=== PATIENT | female | born 1970 | race Caucasian/White ===

== ENCOUNTER 2021-09-28 08:09 | Emergency (ER) | payer OTHER, SELFPAY ==
--- NOTE | 2021-09-28 08:12 | ED.URI ---
HPI - URI/Sore Throat General Chief Complaint: Upper Respiratory Infection Stated Complaint: Cough/Shortness of Breath Time Seen by Provider: 09/28/21 08:12 Source: patient Mode of arrival: ambulatory Limitations: no limitations History of Present Illness HPI Narrative: Ms. Oro is a 51-year-old female patient presenting to the clinic today with complaints of cough and shortness of breath times x 1 week. Cough is productive with white sputum. She reports no fever or chills. States her daughter was diagnosed with bronchitis this past week. She has done COVID testing at home and they were negative. She reports shortness of breath and cough is worse when laying flat. She is able to speak in full sentences and her oxygen saturations 99% in the clinic today. She denies any known exposure to anybody with COVID, flu, or strep MD elicited complaint: cough and other (Shortness of breath) Related Data Home Medications Medication Instructions Recorded Confirmed escitalopram oxalate 10 mg tablet 10 mg PO DAILY 09/28/21 09/28/21 propranolol 80 mg capsule,24 80 mg PO DAILY 09/28/21 09/28/21 hr,extended release Allergies Allergy/AdvReac Type Severity Reaction Status Date / Time Penicillins Allergy Intermediate Hives Verified 09/28/21 08:28 Review of Systems Review of Systems: Pertinent positives per HPI. Patient denies any fever, chills, rash, headache, visual changes, dizziness, chest pain, palpitations, nausea, vomiting, diarrhea, constipation, abdominal pain, or any urinary issues. PMFSH Comments At the time of my signature, I reviewed and agree with the nursing past medical, surgical, social, and family history. There is no relevant family history pertinent to the patient complaint. Exam Narrative: General: Well-developed, well nourished, in no apparent distress Head: Normocephalic, atraumatic Eyes: Pupils equally round and reactive to light bilaterally, EOM intact, sclera and conjunctive clear, no discharge, lids normal Ears: TMs intact and clear, ear canals clear, no drainage, grossly hearing normal. Nose: Nares patent, clear nasal discharge, moderate inflammation, no sinus tenderness. Mouth: Oral pharynx without lesions or masses, good dentition, MMM. Postnasal drip Neck: Supple, trachea midline, no enlargement of anterior or posterior cervical nodes, no thyroid masses or goiter palpable. Cardio: Regular rate and rhythm, s1 and s2 normal, no murmur appreciated. Resp: Clear to auscultation bilaterally, no rhonchi, rales, wheezing or rubs Course Course Emergency Course: Portions of this record may have been created with voice recognition software. Level of Care: Express Care Visit Vital Signs Vital signs: Vital Signs Temperature 37.0 C 09/28/21 08:18 Pulse Rate 98 09/28/21 08:18 Respiratory Rate 22 H 09/28/21 08:18 Blood Pressure 163/101 H 09/28/21 08:18 Pulse Oximetry 99 09/28/21 08:18 Oxygen Delivery Room Air 09/28/21 08:18 Temperature 37.0 C 09/28/21 08:18 Pulse Rate 98 09/28/21 08:18 Respiratory Rate 22 H 09/28/21 08:18 Blood Pressure 163/101 H 09/28/21 08:18 Pulse Oximetry 99 09/28/21 08:18 Oxygen Delivery Room Air 09/28/21 08:18 Vital signs reviewed MDM - URI/Sore Throat MDM Narrative Medical decision making narrative: At the time of visit patient is resting comfortably on the exam table. I suspect the patient has an upper respiratory infection with postnasal drip. I will give her a prescription for some prednisone, Tessalon Perles, and albuterol inhaler. Supportive measures were discussed with the patient she voiced understanding of discharge instructions and agrees to the treatment plan. Also discussed patient's higher blood pressure in the clinic today and she is to follow-up with her PCP for reevaluation. Differential Diagnosis Differential diagnosis: Likely upper respiratory infection, otitis media, sinusitis, viral infection, bronchitis, influ
[2021-09-28 08:18] VITALS: BP 163/101; PULSE 98; RESP 22; TEMP 37; O2SAT 99
== END 2021-09-28 08:52 | disposition home or self-care (01) ==
PROVIDERS: Emergency Provider Nurse Practitioner Family; PCP Physician Assistant
DX: J06.9 Acute upper respiratory infection, unspecified (principal); I10 Essential (primary) hypertension; F41.9 Anxiety disorder, unspecified; F32.A Depression, unspecified
CPT/HCPCS: 99213; G0463

== ENCOUNTER 2022-01-13 10:07 | Emergency (ER) | payer OTHER, SELFPAY ==
--- NOTE | 2022-01-13 10:08 | ED.URI ---
HPI - URI/Sore Throat General Chief Complaint: Upper Respiratory Infection Stated Complaint: deep cough and in chest Time Seen by Provider: 01/13/22 10:09 Source: patient and RN notes reviewed History of Present Illness HPI Narrative: patient is a 51-year-old female who presents to urgent care with complaints of cough and drainage. Patient is also having some shortness of breath. Patient states symptoms started approximately 1-2 weeks ago and she has not been seen by her primary care doctor. Patient denies any recent fevers, nausea, vomiting or chest pain. Patient states she has been using Coricidin and DayQuil. States that she quit taking her prescription medications including her propranolol for increased heart rate. No other acute complaints. No acute distress noted. Patient aware of the plan of care. Some parts of this dictation were generated by voice recognition software and may contain typographical and/or grammatical inaccuracies. Related Data Allergies Allergy/AdvReac Type Severity Reaction Status Date / Time Penicillins Allergy Intermediate Hives Verified 09/28/21 08:28 erythromycin base Allergy Unknown Verified 01/13/22 10:17 Review of Systems Review of Systems: CONSTITUTIONAL: Denies fever, chills, or sweats. EYES: Denies visual changes, redness, or discharge. ENT: reports rhinorrhea postnasal drainage CARDIOVASCULAR: Denies chest pain, palpitations, or edema. RESPIRATORY: Reports dry cough with intermittent dyspnea GASTROINTESTINAL: Denies abdominal pain, nausea, vomiting, or diarrhea. GENITOURINARY: Denies dysuria or hematuria. SKIN: Denies rash or itching. MUSCULOSKELETAL: Denies back pain, joint pain, or myalgia. NEUROLOGIC: Denies headache, numbness, or weakness. All other systems reviewed are negative, except as documented in HPI. PMFSH Comments At the time of my signature, I reviewed and agree with the nursing past medical, surgical, social, and family history. There is no relevant family history pertinent to the patient complaint. Exam Narrative: GENERAL: This is a well-nourished, well-developed patient, in no apparent distress. HEAD: normocephalic, atraumatic. EYES: PERRL. Sclera clear/white. Vision is grossly intact. EARS: External ears normal, auditory canals clear and without drainage, TMs normal without perforation. Hearing grossly intact. NOSE: External nose normal with no obvious nasal discharge, nares without redness, clear rhinorrhea. THROAT: Mucous membranes moist, posterior pharynx clear. Moderate postnasal drainage NECK: Neck supple, non-tender without lymphadenopathy, masses or thyromegaly. CARDIOVASCULAR: auscultated 98 beats per minute sinus rhythm RESPIRATORY: dry cough noted on exam.Clear to auscultation. Breath sounds equal bilaterally. No wheezes, rales, or rhonchi. GASTROINTESTINAL: Abdomen soft, non-tender, nondistended. Bowel sounds are active. No hepato-splenomegaly, or palpable masses. No guarding. SKIN: warm, intact with no suspicious lesions or rash, good texture and turgor. NEURO: awake, alert, and oriented to person, place and time. There were no obvious focal neurologic abnormalities. EXTREMITIES: No clubbing, cyanosis, or edema. Course Course Level of Care: Express Care Visit Vital Signs Vital signs: Vital Signs Temperature 97.3 F L 01/13/22 10:18 Pulse Rate 108 H 01/13/22 10:18 Respiratory Rate 16 01/13/22 10:18 Blood Pressure 167/122 H 01/13/22 10:18 Pulse Oximetry 99 01/13/22 10:18 Oxygen Delivery Room Air 01/13/22 10:18 Temperature 97.3 F L 01/13/22 10:18 Pulse Rate 108 H 01/13/22 10:18 Respiratory Rate 16 01/13/22 10:18 Blood Pressure 167/122 H 01/13/22 10:18 Pulse Oximetry 99 01/13/22 10:18 Oxygen Delivery Room Air 01/13/22 10:18 Reviewed- Patient is informed that they may have pre-hypertension or hypertension based on a blood pressure reading in the department. I recommend the patient call the primary care
[2022-01-13 10:18] VITALS: BP 167/122; PULSE 108; RESP 16; TEMP 36.3; O2SAT 99
[2022-01-13 10:33] VITALS: BP 150/108
== END 2022-01-13 10:34 | disposition home or self-care (01) ==
PROVIDERS: Emergency Provider Nurse Practitioner Family
DX: J06.9 Acute upper respiratory infection, unspecified (principal); I10 Essential (primary) hypertension
CPT/HCPCS: 99213; G0463

== ENCOUNTER 2022-05-31 14:23 | Emergency (ER) | payer OTHER, SELFPAY ==
[2022-05-31 14:32] VITALS: BP 154/104; PULSE 94; RESP 16; TEMP 36.2; O2SAT 98
--- NOTE | 2022-05-31 15:09 | ED.URI ---
HPI - URI/Sore Throat General Chief Complaint: Upper Respiratory Infection Stated Complaint: Cold Symptoms Time Seen by Provider: 05/31/22 14:44 Source: patient Mode of arrival: ambulatory Limitations: no limitations History of Present Illness HPI Narrative: Patient presents today complaining a 5 day history sweats, chills, congestion, sore throat, sinus pressure, fatigue, with subjective fever on day of onset of symptoms. She also reports left eye redness and green pus drainage since this morning. She has been taking Benadryl and Tylenol with some relief. Patient takes azathioprine for her ulcerative colitis. Smokes 0.25 packs per day. Denies shortness of breath. Related Data Home Medications Medication Instructions Recorded Confirmed azathioprine 50 mg tablet 50 mg PO DAILY 05/31/22 05/31/22 escitalopram oxalate 10 mg tablet 10 mg PO DAILY 05/31/22 05/31/22 propranolol 80 mg capsule,24 80 mg PO DAILY 05/31/22 05/31/22 hr,extended release Allergies Allergy/AdvReac Type Severity Reaction Status Date / Time Penicillins Allergy Intermediate Hives Verified 05/31/22 14:36 erythromycin base Allergy Unknown Verified 05/31/22 14:36 Review of Systems Review of Systems: CONSTITUTIONAL: Denies body aches.+ sweats, chills, fever, fatigue EYES: Denies visual changes.+ left eye redness, drainage ENT: Denies rhinorrhea, or otalgia.+ congestion, sore throat, sinus pressure CARDIOVASCULAR: Denies chest pain, palpitations, or edema. RESPIRATORY: Denies cough or dyspnea. GASTROINTESTINAL: Denies abdominal pain, nausea, vomiting, or diarrhea. GENITOURINARY: Denies dysuria or hematuria. SKIN: Denies rash, itching, or wounds. MUSCULOSKELETAL: Denies back pain, joint pain, or myalgia. NEUROLOGIC: Denies headache, numbness, tingling, or weakness. PSYCH: Denies depression or anxiety. [facility] Past Medical History Medical History (Updated 05/31/22 @ 15:16 by Evelyne Love, [employer], ) Hypertension Ulcerative colitis Comments At time of signature, I have reviewed and agree with nursing past medical, surgical, social and family history unless otherwise noted. Please see nursing chart for further information. There is no relevant family history pertinent to the presenting complaint Exam Narrative: GENERAL: Mildly ill-appearing, well-nourished, and in no acute distress. HEAD: Normocephalic, atraumatic. EYES: EOMI. PERRL. Right eye normal. Left eye injected conjunctiva with small amount of green purulent discharge in the medial canthus. Lids and lashes normal. ENT: Mucous membranes pink and moist. Nares congested. No rhinorrhea. TMs normal bilaterally. Throat normal. Uvula midline. NECK: Normal AROM. Supple. No lymphadenopathy. CHEST: No respiratory distress. Clear to auscultation. HEART: Regular rate and rhythm. No murmur appreciated. Normal peripheral pulses. EXTREMITIES: Normal range of motion. No edema. SKIN: Warm, dry, no rash. Capillary refill normal. Normal skin turgor. NEURO: No focal deficits. Alert and oriented x3. Gait steady. PSYCH: Normal affect. No signs of depression or anxiety. Course Course Level of Care: Express Care Visit Vital Signs Vital signs: Vital Signs Temperature 97.1 F L 05/31/22 14:32 Pulse Rate 94 05/31/22 14:32 Respiratory Rate 16 05/31/22 14:32 Blood Pressure 154/104 H 05/31/22 14:32 Pulse Oximetry 98 05/31/22 14:32 Oxygen Delivery Room Air 05/31/22 14:32 Temperature 97.1 F L 05/31/22 14:32 Pulse Rate 94 05/31/22 14:32 Respiratory Rate 16 05/31/22 14:32 Blood Pressure 154/104 H 05/31/22 14:32 Pulse Oximetry 98 05/31/22 14:32 Oxygen Delivery Room Air 05/31/22 14:32 Reviewed. Pt has been instructed to follow up with her PCP regarding her elevated blood pressure today. MDM - URI/Sore Throat MDM Narrative Medical decision making narrative: Patient is at increased risk of bacterial infection due to her immunosuppression. Will place on do
== END 2022-05-31 15:21 | disposition home or self-care (01) ==
PROVIDERS: Emergency Provider Nurse Practitioner; PCP Physician Assistant
DX: J01.90 Acute sinusitis, unspecified (principal); H10.9 Unspecified conjunctivitis; I10 Essential (primary) hypertension
CPT/HCPCS: 99213; G0463

== ENCOUNTER 2023-01-14 10:24 | Emergency (ER) | payer OTHER, SELFPAY ==
[2023-01-14 10:29] VITALS: BP 140/89; PULSE 75; RESP 20; TEMP 36.8; O2SAT 96
--- NOTE | 2023-01-14 10:59 | ED.URI ---
HPI - URI/Sore Throat General Chief Complaint: Upper Respiratory Infection Stated Complaint: sob/cough/fatigue Time Seen by Provider: 01/14/23 11:03 Source: patient, RN notes reviewed and old records reviewed Mode of arrival: ambulatory Limitations: no limitations History of Present Illness HPI Narrative: 52-year-old female presents to [facility] with complaints cough, patient states is productive with green phlegm and is worse tonight. Patient states tested positive for COVID on January 04. Patient states cough is worsened. MD elicited complaint: cough Related Data Home Medications Medication Instructions Recorded Confirmed azathioprine 50 mg tablet 50 mg PO DAILY 05/31/22 01/14/23 escitalopram oxalate 10 mg tablet 10 mg PO DAILY 05/31/22 01/14/23 propranolol 80 mg capsule,24 80 mg PO DAILY 05/31/22 01/14/23 hr,extended release Allergies Allergy/AdvReac Type Severity Reaction Status Date / Time Penicillins Allergy Intermediate Hives Verified 01/14/23 10:36 erythromycin base Allergy Unknown Verified 01/14/23 10:36 Review of Systems Constitutional: Constitutional: Reports no additional constitutional complaints Eyes: Eyes: Reports no additional eye complaints ENT: Reports system reviewed and no additional complaints, except as documented Cardiovascular: Cardiovascular: Reports no additional cardiovascular complaints Respiratory: Respiratory: Reports as per HPI, Reports chest congestion and Reports cough Neurologic: Reports system reviewed and no additional complaints, except as documented [facility] Past Medical History Medical History (Updated 01/14/23 @ 11:06 by Nneka Pittman APRN) Hypertension Ulcerative colitis Comments At the time of my signature, I reviewed and agree with the nursing past medical, surgical, social, and family history. There is no relevant family history pertinent to the patient complaint. Exam Const: General: cooperative, healthy appearing, no acute distress and well nourished Nutritional Appearance: well nourished Orientation/consciousness: patient oriented x3 Limitations: no limitations HENMT: Head: normal to inspection and normocephalic Ears: external ears normal, TM's normal bilaterally, mastoids normal and Abnormal EAC present Face/Nose/Sinus: normal facial exam Face and sinus: normal facial exam Mouth: Yes Normal oral and palatal mucosa present, Yes oropharynx normal and Yes moist mucous membranes Throat: posterior oropharynx normal, tonsils normal, uvula midline and no uvular edema Eyes: General: appearance normal, both eyes and all related structures Sclera: sclerae normal Pupils: Equal, round and reactive pupils present Resp: Effort & Inspection: normal respiratory effort, able to speak in complete sentences, no audible wheezes, no cough, no respiratory distress and no retractions Auscultation: clear to auscultation bilaterally, no crackles, no rales, no rhonchi and no wheezes Cardio: Rate: regular rate Rhythm: regular rhythm Skin: General skin exam: normal color and no rashes or lesions noted Neuro: General: patient oriented x3 Cranial nerves: Yes Equal, round and reactive pupils present Psych: Appearance: grossly normal Course Course Emergency Course: Some parts of this dictation were generated by voice recognition software and may contain typographical and/or grammatical inaccuracies. Level of Care: Express Care Visit Vital Signs Vital signs: Vital Signs Temperature 98.2 F 01/14/23 10:29 Pulse Rate 75 01/14/23 10:29 Respiratory Rate 20 01/14/23 10:29 Blood Pressure 140/89 01/14/23 10:29 Pulse Oximetry 96 01/14/23 10:29 Oxygen Delivery Room Air 01/14/23 10:29 Temperature 98.2 F 01/14/23 10:29 Pulse Rate 75 01/14/23 10:29 Respiratory Rate 20 01/14/23 10:29 Blood Pressure 140/89 01/14/23 10:29 Pulse Oximetry 96 01/14/23 10:29 Oxygen Delivery Room Air 01/14/23 10:29 Reviewed [facility] - URI/
== END 2023-01-14 11:17 | disposition home or self-care (01) ==
PROVIDERS: Emergency Provider Registered Nurse; PCP Physician Assistant
DX: J06.9 Acute upper respiratory infection, unspecified (principal); I10 Essential (primary) hypertension; Z86.16 Personal history of COVID-19
CPT/HCPCS: 99213; G0463

== ENCOUNTER 2023-09-19 13:33 | Emergency (ER) | payer OTHER, SELFPAY ==
--- NOTE | 2023-09-19 13:41 | ED.GENADULT ---
HPI - General Adult General Chief complaint: Unspecified Stated complaint: Carbon Monoxide Exposure Time Seen by Provider: 09/19/23 13:42 Source: patient, RN notes reviewed and old records reviewed Mode of arrival: ambulatory Limitations: no limitations History of Present Illness HPI narrative: A 53-year-old female to Express Care complaint of feeling foggy . Patient reports that 3 days ago she did laundry and her gas clothes dryer was not being properly vented. Patient states she is concerned that she has carbon monoxide poisoning. Patient reports that 2 days ago she had a headache and dry throat that resolved within 24 hours. Patient endorses history of migraines and seasonal allergies and states that her symptoms could very well have been due to that history. Patient reports that her grandchildren are coming over this weekend and that she wanted to make sure that she did not have carbon monoxide risk in her home. Patient denies headache, fever, dizziness, nausea, vomiting, abdominal pain, shortness of breath, chest pain, drowsiness, visual changes. Patient able to tolerate fluids by mouth. Patient resting comfortably and smiling in exam room. Respirations even and nonlabored. Patient in no acute distress. Related Data Home Medications Medication Instructions Recorded Confirmed escitalopram oxalate 10 mg tablet 10 mg PO DAILY 05/31/22 01/14/23 propranolol 80 mg capsule,24 80 mg PO DAILY 05/31/22 01/14/23 hr,extended release alprazolam 0.25 mg tablet mg 09/19/23 Allergies Allergy/AdvReac Type Severity Reaction Status Date / Time Penicillins Allergy Intermediate Hives Verified 01/14/23 10:36 erythromycin base Allergy Unknown Verified 01/14/23 10:36 Review of Systems Review of Systems: All systems reviewed & are unremarkable except as noted in HPI and below Constitutional: Constitutional: Reports no additional constitutional complaints Eyes: Eyes: Reports no additional eye complaints ENT: Reports system reviewed and no additional complaints, except as documented Cardiovascular: Cardiovascular: Reports no additional cardiovascular complaints, Denies chest pain and Denies dyspnea Respiratory: Respiratory: Reports no additional respiratory complaints, Denies cough and Denies dyspnea Musculoskeletal: Musculoskeletal: Reports no additional musculoskeletal complaints Neurologic: Reports system reviewed and no additional complaints, except as documented Psychiatric: Psychiatric: Reports no additional psychiatric complaints PMFSH Past Medical History Medical History Hypertension Ulcerative colitis Comments At the time of my signature, I reviewed and agree with the nursing past medical, surgical, social, and family history. There is no relevant family history pertinent to the patient complaint. Exam Const: General: cooperative, healthy appearing, comfortable, no acute distress, alert and well nourished Nutritional Appearance: well nourished Orientation/consciousness: patient oriented x3 Limitations: no limitations HENMT: Head: normal to inspection Ears: external ears normal Face/Nose/Sinus: Normal external nose present, Normal nares present, normal facial exam, No erythema and No edema Face and sinus: normal facial exam, no erythema and no edema Mouth: Yes Normal oral and palatal mucosa present Eyes: General: appearance normal, both eyes and all related structures Neck: Neck: normal visual inspection, full ROM and no meningeal signs Lymphatic: no lymphadenopathy noted and no lymphedema noted Chest: Chest palpation & inspection: normal inspection of the chest Resp: Effort & Inspection: normal respiratory effort and able to speak in complete sentences Auscultation: clear to auscultation bilaterally Cardio: Jugular venous distension: no JVD Rate: regular rate Rhythm: regular rhythm Back/Spine/Pelvis: Cervical Spine: cervical ROM normal
[2023-09-19 13:44] VITALS: BP 153/96; PULSE 72; RESP 18; TEMP 36.3; O2SAT 98
== END 2023-09-19 14:09 | disposition home or self-care (01) ==
PROVIDERS: Emergency Provider Nurse Practitioner Family; PCP Physician Assistant
DX: R53.83 Other fatigue (principal); I10 Essential (primary) hypertension
CPT/HCPCS: 99211; G0463

== ENCOUNTER 2024-12-07 11:14 | Emergency (ER) | payer OTHER, SELFPAY ==
[2024-12-07 11:26] VITALS: BP 121/90; PULSE 88; RESP 20; TEMP 36.8; O2SAT 100
[2024-12-07 11:33] LABS: EDCOVIDSCREEN Positive (Negative); EDINFLUASCREEN Negative (Negative); EDINFLUBSCREEN Negative (Negative)
--- NOTE | 2024-12-07 11:34 | ED_ITS ---
HPI - URI/Sore Throat General Chief Complaint: Upper Respiratory Infection Stated Complaint: URI symptoms Time Seen by Provider: 12/07/24 11:34 Source: patient and RN notes reviewed Mode of arrival: ambulatory Limitations: no limitations History of Present Illness HPI Narrative: 54-year-old female presents with concern for 4 day history of fever, cough, chills, nasal congestion. Reports she has taken Tylenol. Reports he started to feel better but then had chills again today. MD elicited complaint: cough Related Data Home Medications ?Medication ?Instructions ?Recorded ?Confirmed ?Last Taken ?Type escitalopram oxalate 10 mg tablet 10 mg PO DAILY 05/3101/14/23 Unknown History propranolol 160 mg capsule,24 mg PO 12/07/24 Unknown History hr,extended release topiramate 25 mg tablet mg 12/07/24 Unknown History Allergies Allergy/AdvReac Type Severity Reaction Status Date / Time Penicillins Allergy Intermediate Hives Verified 12/07/24 11:26 erythromycin base Allergy Unknown Verified 12/07/24 11:26 Review of Systems Review of Systems: CONSTITUTIONAL: Reports malaise, chills, or fever. EYES: Denies visual changes, redness, or discharge. ENT: Reports rhinorrhea, congestion CARDIOVASCULAR: Denies chest pain, palpitations, or edema. RESPIRATORY: Reports cough. Denies dyspnea. GASTROINTESTINAL: Denies abdominal pain, nausea, vomiting, diarrhea SKIN: Denies rash or itching. MUSCULOSKELETAL: Reports myalgia. NEUROLOGIC: Denies headache. All systems reviewed & are unremarkable except as noted in HPI and below PMFSH Past Medical History Medical History Hypertension Ulcerative colitis Comments At time of signature, agree with nursing past medical, surgical, social and family history. There is no relevant family history pertinent to the presenting complaint Exam Narrative: GENERAL: Nontoxic-appearing, well-nourished, and in no acute distress. HEAD: Normocephalic EYES: PERRLA, conjunctivae clear ENT: Nares clear. Mucous membranes moist. TM pearly reynoso with sharp light reflex bilaterally; no tragal tenderness. Oropharynx not erythematous without lesions. Tonsils not enlarged and without exudate, no drooling, no hoarseness, no trismus, uvula midline. NECK: Supple. No lymphadenopathy CHEST: Clear to auscultation, breath sounds equal. No wheezing, rhonchi, rales, or stridor. No respiratory distress, speaks in full sentences. HEART: Regular rate and rhythm. No murmur heard. SKIN: Warm, dry, no rash. NEURO: Alert and oriented x3. PSYCH: Normal mood and affect Course Course Emergency Course: Patient is aware of diagnosis, understands and agrees to treatment plan. Anticipatory guidance given. Patient agrees to follow-up as directed and is aware of reasons to seek care at the emergency department. Portions of this record may have been created with voice recognition software Level of Care: Express Care Visit Vital Signs Vital signs: Vital Signs Temperature 98.2 F 12/07/24 11:26 Pulse Rate 88 12/07/24 11:26 Respiratory Rate 20 12/07/24 11:26 Blood Pressure 121/90 12/07/24 11:26 Pulse Oximetry 100 12/07/24 11:26 Oxygen Delivery Room Air 12/07/24 11:26 Temperature 98.2 F 12/07/24 11:26 Pulse Rate 88 12/07/24 11:26 Respiratory Rate 20 12/07/24 11:26 Blood Pressure 121/90 12/07/24 11:26 Pulse Oximetry 100 12/07/24 11:26 Oxygen Delivery Room Air 12/07/24 11:26 Reviewed. MDM - URI/Sore Throat MDM Narrative Medical decision making narrative: Differential diagnosis considered: Painting virus, strep pharyngitis, allergic r hinitis, upper respiratory tract infection, sinusitis, rhinosinusitis, nasopharyngitis. viral pharyngitis, otitis media, otitis externa, pneumonia, bronchitis, viral cough syndrome, viral syndrome, and influenza. Exam findings show no acute concerns or changes; patient is non-toxic appearing and is in no distress. Patient is appropriate for outpatient treatment and follow-up. Lab Data Attestation: I reviewed the patient's lab results. Labs: Lab Results 12/07/24 Range/Units 11:30 POC Influenza A Ag Negative (Negative) POC Influenza B Ag Negative (Negative) POC SARS CoV-2 Ag Positive (Negative) Critical Care Time Critical Care Time Critical Care Time: No Discharge Plan Discharge Clinical Impression: COVID Patient Disposition: Home Condition: Stable Instructions: How to Recover from COVID-19 at Home (ED) Additional Instructions: Your rapid COVID test is positive. COVID is a virus, antibiotics are not effective against viruses. Your body has to kill viruses. ? Stay home when you are sick, except to get medical care. ? Stay home until your symptoms are resolving and you haven't had a fever for 24 hours. ? If you are self isolating at home where others live, use a separate room and bathroom for sick household members (if possible). Clean any shared rooms as needed, to avoid transmitting the virus. ? Wash your hands often with soap and water for at least 20 seconds, especially after blowing your nose, coughing, or sneezing; going to the bathroom; and before eating or preparing food. ? If soap and water are not available, use an alcohol-based hand bindery machine setter with at least 60% alcohol. ? Have a supply of clean, disposable face masks. Everyone, no matter their COVID diagnosis, should wear face masks while in the home. - Over the counter medications such as Tylenol every 4 hours, ibuprofen every 6 hours (you can alternate these for maximum effect), Mucinex DM for cough, and psuedoephedrine (you must ask the pharmacist for this) can help relieve symptoms while your body fights off the virus. Watch for symptoms and learn when to seek emergency medical attention. If someone is showing any of these signs, seek emergency medical care immediately: ? Trouble breathing ? Persistent chest pain/pressure ? Confusion ? Inability to wake or stay awake ? Bluish lips or face Call 911 or call ahead to your local emergency room: Notify the liquid waste treatment plant operator that you are seeking care for someone who has or may have COVID Patient Language: Iranian Prescriptions: New pseudoephedrine HCl [12 Hour Decongestant] 120 mg tablet extended release 120 mg PO Q12H PRN (Reason: nasal congestion) Qty: 12 0RF dextromethorphan-guaifenesin [Mucinex DM] 60-1,200 mg tablet extended release 12 hr 1 tablet PO Q12H Qty: 12 0RF No Action escitalopram oxalate 10 mg tablet 10 mg PO DAILY propranolol 160 mg capsule,extended release 24 hr PO topiramate 25 mg tablet Follow-up/Referrals: Christopher,HANS Dudley [Primary Care Provider, Unknown] Stand Alone Forms: Work/School Release IP Time of Disposition: 11:44
--- OUTSIDE RECORDS SUMMARY | 2024-12-07 12:51 | XMS_ITS | Encounter Summary ---
Author Organization [facility] Address [address] [place] [address] Phone Care Team Providers Care Processor Solid Propellant Name Role Phone Pilo Mills DO Unavailable [phone] Donita White PAC Primary Care Provider + Joy Costa LEASE OUT MAN, LOGGING CREW FOREMAN Unavailable + [phone] Sarah Cline LEASE OUT MAN, CULINARY INTERNSHIP Unavailable Reason for Visit * Reason Comments Medication Refill Encounter Details Date Type Department Care Team (Late st Contact Info) Description 11/18/2020 Refill [facility] [address] [place] [address] Donita White, PAC [address] [place] [address] Medication Refill Social History Tobacco Use Types Packs/Day Years Used Date Smoking Tobacco: Former Cigarettes 1 12 1 02/24/2001 - 12/25/2013 Smokeless Tobacco: Never Alcohol Use Standard Drinks/Week Comments Yes 0 (1 standard drink = 0.6 oz pur e alcohol) occasionally PHQ-2 Answer Date Recorded Total Score - Questions 1-9 0 06/0 09/2020 Comments No Sex and Gender Information Value Date Recorded Sex Assigned at Not on file Legal Sex Female 10:47 PM CDT Gender Identity Not on file Sexual Orientation Not on file 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 Requested Prescriptions Pending Prescriptions Disp Refills escitalopram (LEXAPRO) 10 MG Tablet [Pharmacy Med Name: ESCITALOPRAM 10MG TABLETS] 30 Tablet 2 Sig: TAKE 1 TABLET BY MOUTH DAILY SSRI (6 Month Refill Only) Protocol Failed - 11/18/2020 1:56 PM Failed - Patient has established therapy with SSRI for at least 6 months Passed - No test in the past 12 months or most recent test was negative Passed - No active on record Passed - Visit with relevant provider in past 6 months or upcoming 90 days Recent Visits Date Type Provider Dept 07/19/20 Office Visit [facility]ita [facility] 06/21/20 Telemedicine Donita White PAC [facility] 05/20/20 Telemedicine Donita White [facility] Showing recent visits within past 182 days and meeting all other requirements Future Appointments No visits were found meeting these conditions. Showing future appointments within next 90 days and meeting all other requirements Passed - Has an encounter in the past 6 months with a depression, anxiety, adjustment disorder, OCD, or PTSD visit diagnosis documented in this encounter Plan of Treatment Not on file documented as of this encounter Visit Diagnoses Not on filedocumented in this encounter Additional Health Concerns Assessment Noted Time PHQ-9 Depression Total Score: 0 07/20/19 3:00 PM CDT documented as of this encounter Care Teams Processor Solid Propellant Relationship Specialty Start Date End Date Donita White PAC [address] [place] [address] PCP - General Physician Operating Room Assistant 04/29/17 Pilo Mills DO Gastroenterology 11/01/15 Joy Costa APRN, LOGGING CREW FOREMAN [address] [place] [address] Nurse Practitioner Advanced Practice Nurse 12/02/23 Sarah Cline APRN, CULINARY INTERNSHIP [address] [place] [address] Nurse Practitioner Cardiology 02/03/24 documented as of this encounter
--- OUTSIDE RECORDS SUMMARY | 2024-12-07 12:51 | XMS_ITS | Clinical Summary ---
Author Organization [facility] Address [address] [place] [address] Phone Care Team Providers Care Boat Mechanic Name Role Phone Pilo Mills DO Unavailable [phone] Donita White Primary Care Provider + Joy Costa FABRICATION MIG WELDER, SUSTAINABLE AGRICULTURE FACULTY Unavailable + [phone] Sarah Cline FABRICATION MIG WELDER, BLADE CHANGER Unavailable Allergies Active Allergy Reactions Criticality Noted Date Comments Azithromycin Unknown Erythromycin Other (see Comments) 06/26/2016 EES VERY SLEEPY Penicillins Hives 11/01/2015 Prochlorperazine Other (see Comments) Low Medications Acetaminophen (TYLENOL PO) Take by mouth. Ac tive meclizine (ANTIVERT) 25 MG TabletIndication s:Dizziness Take 1 Tablet by mouth 3 times daily as needed for Dizziness. 30 Tablet 3 Active Additional Information Patient not taking.Reported on 03/16/2024 ondansetron (Zofran) 4 MG TabletIndication s:Chronic migraine with aura without status migrainosus, not intractable Take 1 Tablet by mouth every 8 hours as needed for Nausea - 1st line. 15 Tablet 4 Active Rizatriptan Benzoate 5 MG TABLET DISPERSIBLEIndic ations:Chronic migraine with aura without status migrainosus, not intractable Take 1 Tablet by mouth once as needed for Migraine or Headaches. 10 Tablet 3 4 Active Cyanocobalamin (B-12) 1000 MCG CapsuleIndicatio ns:Low vitamin B12 level Take 1 Capsule by mouth daily. 30 Capsule 2 4 Active Additional Information Patient not taking.Reported on 03/16/2024 ALPRAZolam (XANAX) 0.25 MG TabletIndication s:Anxiety Take 1 Tablet by mouth 3 times daily as needed for Anxiety. 30 Tablet 5 Active propranolol (INDERAL LA) 160 MG CAPSULE SR 24 HRIndications:Hy pertension, unspecified type Take 1 Capsule by mouth daily. 90 Capsule 3 5 Active topiramate (TOPAMAX) 25 MG TabletIndication s:Chronic migraine with aura without status migrainosus, not intractable Take 1 Tablet by mouth daily. 90 Tablet 1 5 Active escitalopram (LEXAPRO) 10 MG TabletIndication s:Anxiety Take 1 Tablet by mouth daily. 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 01/01/2017 Tracheal deviation 01/01/2017 Ulcerative proctitis with complication 6 Encounters Date Type Department Care Team Description 09/17/2024 Refill [facility] [address] [place] [address] Donita White PAC Medication Refill from Last 3 Months Family History Medical History Relation Name Comments Depression Father Hypertension Father Seizures Father Skin Cancer Father Breast Cancer Maternal Grandmother Diabetes Maternal Uncle Depression Mother Hypertension Mother Skin Cancer Mother Heart Disease Paternal Grandmother Breast Cancer Sister Relation Name Status Comments Father Maternal Grandmother Maternal Uncle Mother Alive Paternal Grandmother Sister Social History Tobacco Use Types Packs/Day Years Used Date Smoking Tobacco: Former Cigarettes 1 12 1 02/24/2001 - 12/25/2013 Smokeless Tobacco: Never Tobacco Cessation:Counseling Given: Not Answered Alcohol Use Standard Drinks/Week Comments Yes 0 (1 standard drink = 0.6 oz pur e alcohol) occasionally C Utilities Answer Date Recorded In the past 12 months has e electric, gas, oil, or water company threatened to shut off services in your home? No 08/19/2023 Social Connection and Isolation Panel Answer Date Recorded In a typical week, how many times do you talk on the phone with family, friends, or neighbors? More than three times a week 08/19/2023 How often do you get togethe r with friends or relatives? More than three times a week 08/19/2023 How often do you attend chur ch or anabaptism services? Patient declined 08/19/2023 Do you belong to any clubs o r organizations such as protestant groups, unions, fraternal or athletic groups, or school groups? No 08/19/2023 How often do you attend meet ings of the clubs or organizations you belong to? Patient declined 08/19/2023 Are you , , di vorced, , never , or living with a partner? 08/19/2023 AUDIT-C Answer Date Recorded Q1: How often do you have a drink containing alc ohol? Monthly or less 08/19/2023 Q2: How many drinks containi ng alcohol do you have on a typical day when you are drinking? 1 or 2 08/19/2023 Q3: How often do you have si x or more drinks on one occasion? Never 08/19/2023 Overall Financial Resource Strain (CARDIA) Answe r Date Recorded How hard is it for you to pa y for the very basics like food, housing, medical care, and heating? Hard 08/19/2023 PHQ-2 Answer Date Recorded Total Score - Questions 1-9 10 05/0 06/2024 [facility] of Occupat ional Health - Occupational Stress Questionnaire Answer Date Recorded Do you feel stress - tense, restless, nervous, or anxious, or unable to sleep at night because your mind is troubled all the time - these days? To some extent 08/19/2023 Exercise Vital Sign Answer Date Recorde d On average, how many days pe r week do you engage in moderate to strenuous exercise (like a brisk walk)? 5 days 08/19/2023 On average, how many minutes do you engage in exercise at this level? 20 min 08/19/2023 Hunger Vital Sign Answer Date Recorded Within the past 12 months, y ou worried that your food would run out before you got the money to buy more. Sometimes true Within the past 12 months, t he food you bought just didn't last and you didn't have money to get more. Sometimes true 09/2023 PRAPARE - Transportation Answer Date Re corded In the past 12 months, has l ack of transportation kept you from medical appointments or from getting medications? No 09/2023 In the past 12 months, has l ack of transportation kept you from meetings, work, or from getting things needed for daily living? No 08/19/2023 Housing Stability Vital Sign Answer Yfn e Recorded In the last 12 months, was t here a time when you were not able to pay the mortgage or rent on time? Patient declined 08/19/19 24 Number of Times Moved in the Last Year Not on fi le 08/19/2023 At any time in the past 12 m [place], were you homeless or living in a halfway (including now)? No 08/19/2023 Education Answer Date Recorded What is the highest level of school you have completed or the highest degree you have received? 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 Not on file Not on file Last Filed Vital Signs Vital Sign Reading Time Taken Comments Blood Pressure 124/92 06/15/2024 10:39 AM CDT Pulse 82 06/15/2024 10:39 AM CDT Temperature 36.1 C (97 F) 06/15/2024 10:39 AM CDT Respiratory Rate 16 06/15/2024 10:39 AM CDT Oxygen Saturation 96% 06/15/2024 10:39 AM CDT Inhaled Oxygen Concentration - - Weight 76.7 kg (169 lb) 06/15/2024 10:39 AM CDT Height 167.6 cm (5' 6) 06/15/2024 10:39 AM CDT Body Mass Index 27.28 06/15/2024 10:39 AM CDT Plan of Treatment Health Maintenance Due Date Last Done Comments TdaP Immunization 1970 Hepatitis B Immunization (1 of 3 - 19+ 3-dose series) 09/17/1990 Pap Smear 09/17/1992 Cervical Cancer Screening (CCS) 09/17/2001 HPV/Cotest 09/17/2001 Cologuard 09/17/2016 Immunochemical Fecal Occult Blood 09/17/2016 Mammogram 08/06/2018 08/06/2017 Colonoscopy 08/22/2019 08/21/2017, 06/11, 12/28/2015, Additional history exists Colorectal Cancer Screening 08/22/2019 Pneumococcal Immunization (50+ years) (1 of 1 - PCV) 09/17/2021 Zoster Immunization (1 of 2) 09/17/2021 Influenza Immunization (#1) 2024 SARS-COV-2 Immunization (1 - season) 2024 Respiratory Syncytial Virus (RSV) Immunization (Adult) (1 - 1-dose 75+ series) 09/17/2046 Hepatitis C Virus (HCV) Screening Completed 06/29/2016 Discussion re Starting/Frequency of Mammograms Discontinued 08/06/2017 Human Papillomavirus (HPV) Immunization Aged Out No longer eligible based on patient's age to complete this topic Meningococcal Immunization (ACWY) Aged Out No longer eligible based on patient's age to complete this topic Rotavirus Immunization Aged Out No lo nger eligible based on patient's age to complete this topic Procedures Procedure Name Priority Date/Time Associated Diagnosis Comments IVANNA SCREENING BILATERAL DIGITAL W CAD Routine 08/06/2017 2:36 PM CDT Screening mammogram, encounter for HEPATITIS PANEL ACUTE (AHP) Routine 06/29/2016 8:25 AM CDT HM COLONOSCOPY Routine 06/29/2016 from Last 3 Months or Most Recently Relevant to Health Maintenance Results * IVANNA SCREENING BILATERAL DIGITAL W CAD (08/06/2017 2:36 PM CDT) Anatomical Region Laterality Modality breast Bilateral Mammography 08/06/2017 2:14 PM CDT Narrative 08/07/2017 10:52 AM CDT - IVANNA SCREENING BILATERAL DIGITAL W CAD BILATERAL DIGITAL SCREENING MAMMOGRAM WITH CAD WITH MEDIOLATERAL OBLIQUE CRANIOCAUDAL: 08/06/2017 The study was acquired using digital technology and interpreted from soft copy. Current study was also evaluated with ICAD version 7.2. CLINICAL: New baseline screening. Patient has no complaints. No personal history of cancer. Sister with breast cancer. COMPARISONS: No prior exams were available for comparison. BREAST TISSUE:The tissue of both breasts is heterogeneously dense. This may lower the sensitivity of mammography. FINDINGS: No significant masses, calcifications, or other findings are seen in either breast. IMPRESSION: BI-RAD 1 NEGATIVE There is no mammographic evidence of malignancy. A 1 year screening mammogram is recommended. The patient has been or will be contacted. The patient will be entered into a reminder system with a target due date of 1 year for her next screening exam. Electronically signed by: Cat martinez/penrad:08/06/2017 17:12:37 Personal Lines Appraiser: Rachelle Capellan (Emil), F [facility] letter sent: Normal Exam Reading location: BI-RADS: 1 Negative Procedure Note Cat Stephen MD - 08/07/2017 - [facility] SCREENING BILATERAL DIGITAL W CAD BILATERAL DIGITAL SCREENING MAMMOGRAM WITH CAD WITH MEDIOLATERAL OBLIQUE CRANIOCAUDAL: 08/06/2017 The study was acquired using digital technology and interpreted from soft copy. Current study was also evaluated with ICAD version 7.2. CLINICAL: New baseline screening. Patient has no complaints. No personal history of cancer. Sister with breast cancer. COMPARISONS: No prior exams were available for comparison. BREAST TISSUE:The tissue of both breasts is heterogeneously dense. This may lower the sensitivity of mammography. FINDINGS: No significant masses, calcifications, or other findings are seen in either breast. IMPRESSION: BI-RAD 1 NEGATIVE There is no mammographic evidence of malignancy. A 1 year screening mammogram is recommended. The patient has been or will be contacted. The patient will be entered into a reminder system with a target due date of 1 year for her next screening exam. Electronically signed by: Cat martinez/penrad:08/06/2017 17:12:37 Personal Lines Appraiser: Rachelle Capellan (Emil), [facility] letter sent: Normal Exam Reading location: BI-RADS: 1 Negative us Donita Constantino Christopher PAC IMG MAMMO ORDERABLES Fin al Result * Hepatitis Panel Acute (AHP) (06/29/2016 8:25 AM CDT) HEPATITIS A IGM ANTIBODY NON DETECTED NON DETECTED 06/29/2016 11:18 PM CDT [facility] Comment: IGM Antibodies to HAV not detected. Does not exclude early acute or recovered HAV infection. HEP B CORE AB (IGM) NON DETECTED NON DETECTED 06/29/2016 11:18 PM CDT [facility] Comment: IGM anti-HBC not detected. Does not exclude the possibility of exposure to or infection with HBV. HEPATITIS B SURFACE ANTIGEN NON DETECTED NON DETECTED 06/29/2016 11:18 PM CDT [facility] Comment: A nonreactive test result does not exclude the possibility of exposure to or infection with Hepatitis B virus. A nonreactive test result in individuals with prior exposure to hepatitis B may be due to antigen levels below the detection limit of this assay or lack of antigen reactivity to the antibodies in this assay. hepatitis C antibody 0.10 <1 S/CO 06/29/2016 11:18 PM CDT [facility] Comment: Signal/Cutoff ratio < 0.79 is Nondetected Signal/Cutoff ratio 0.80-0.99 is Grayzone Signal/Cutoff ratio > 0.99 is Detected Supplemental assays are recommended if signal/cutoff ratio is >/=1.00. Signal/cutoff ratio result >/= 5.00 is 97% predictive of positivity for recombinant immunoblot assay (RIBA) and will be reported to the [place] Department of Public Health as required. Blood specimen (specimen) Butterfly Puncture / Unknown 06/29/2016 8:25 AM CDT 06/29/2016 8:31 AM CDT us Pilo Mills DO HEMATOLOGY ORDERABLES Final Res ult [facility] [address] [place] [address], * COLONOSCOPY (06/29/2016) Pilo Mills DO PROCEDURE/MINOR SURGICAL ORDERA BLES Final Result from Last 3 Months or Most Recently Relevant to Health Maintenance Insurance MEDICAID [place] Care Teams Boat Mechanic Relationship Specialty Start Date End Date Donita White PAC [address] [place] [address] PCP - General Physician Public Health Program Manager 04/29/17 Pilo Mills DO Gastroenterology 11/01/15 Joy Costa APRN, SUSTAINABLE AGRICULTURE FACULTY [address] [place] [address] Nurse Practitioner Advanced Practice Nurse 12/02/23 Sarah Cline APRN, BLADE CHANGER [address] [place] [address] Nurse Practitioner Cardiology 02/03/24
--- OUTSIDE RECORDS SUMMARY | 2024-12-07 12:51 | XMS_ITS | Clinical Summary ---
Author Organization [facility] [address] [facility] [address] Address [address] [place] [address] Care Team Providers Care Academic Affairs Specialist Name Role Phone Bereket Carrillo Primary Care Provider Unavailabl e Allergies Active Allergy Reactions Criticality Noted Date Comments Azithromycin Erythromycin Other (See comments) Reaction: Unknown, Penicillins Rash Reaction: Rash, , Prochlorperazine Other (See comments) Low Medications folic acid (FOLVITE) 1 mg tablet Take 1 mg by mouth daily. Active mesalamine (APRISO) 0.375 gram 24 hr capsuleIndicat ions:Ulcerativ e Colitis Take 0.375 mg by mouth 4 (four) times a day. 7 Active cholecalcifero l (VITAMIN D-3) 50,000 unit capsule Take 50,000 Units by mouth once a week. 0 7 Active azaTHIOprine (IMURAN) 50 mg tablet Take 50 mg by mouth 2 (two) times a day. Active adalimumab (HUMIRA PEN) 40 mg/0.8 mL pen injector kit INJECT ONE PEN (40 MG) SUBCUTANEOUSLY EVERY OTHER WEEK. REFRIGERATE. 8 Active UNABLE TO FIND Vitamin B 12 1,000mcg po BID Active cetirizine (ZyrTEC) 10 mg tablet Take 10 mg by mouth daily as needed for allergies. Active metoprolol (LOPRESSOR) 100 mg tablet TAKE 1 TABLET BY MOUTH TWICE DAILY 60 tablet 8 Active Active Problems Problem Noted Date Diagnosed Date Mass of neck 01/24/2017 Substernal thyroid goiter 01/09/2017 Assessment & Plan (03/26/2017 6:37 PM ASSOCIATE PROFESSOR OF SURGERY): Patient has done well postoperatively. I will check a TSH level. Patient will follow back up in 2 weeks. Assessment & Plan (01/09/2017 6:36 PM ASSOCIATE PROFESSOR OF SURGERY): Patient demonstrates a large left substernal goiter with mediastinal extension causing significant tracheal deviation to the right. Ultrasound-guided fine- needle aspiration biopsy demonstrated benign cytology. Surprisingly, patient does not exhibit significant local compressive symptoms. Chemistry demonstrates a euthyroid state. A thorough discussion took place today with the patient pertaining to her condition. Results of diagnostic testing were discussed in detail. Patient was made aware that based on her age, the likelihood of this goiter continuing to progress causing more significant problems as well as making it more complicated to manage surgically that early surgical intervention is indicated. Due to the significant substernal extent and deviation of the trachea patient will most likely require a partial sternotomy. Discussion pertaining to the patient's anatomy in this area, highlighting the recurrent laryngeal nerve, parathyroid glands and neurovascular structures, their anatomical location relationship to the operative site and the potential disability that could occur should the structures be injured. All questions were answered to what appeared to be patient's understanding and satisfaction. After the procedure was explained in full the potential risk, complications, benefits and alternatives patient would like to proceed. Patient will be scheduled in a timely fashion. Patient will be referred preoperatively to cardiovascular thoracic surgeon Dr. Yeyo Rowe who I will be working together with for this surgery. Sinus tachycardia 10/04/2016 Assessment & Plan (10/04/2016 7:48 PM CDT): Patient has either syndrome of inappropriate sinus tachycardia or POTS. Modest improvement with metoprolol. A tilt-table test may help distinguish these 2 entities since she often complains of palpitations supine (which argues against POTS) but tends to have more tachycardia during the day. If the patient has syndrome of inappropriate tachycardia, ivabradine may be useful. Infrequently patient's proceed to sinus node partial ablation. If patient has POTS, then sometimes Florinef is also helpful Precordial pain 10/04/2016 Assessment & Plan (10/04/2016 7:49 PM CDT): Atypical chest pain, noncardiac Left arm weakness 10/04/2016 Assessment & Plan (10/04/2016 7:50 PM CDT): Patient being evaluated for possible neurologic disorder by Palpitations 07/23/2016 Proctitis 01/31/2016 Resolved Problems Problem Noted Date Diagnosed Date Resolved Date Muscle weakness 04/22/2015 07/23/2016 Overview (05/17/2016): Muscle weakness Unspecified essential hypertension 04/13/2015 07/23/2016 Overview (05/17/2016): Essential hypertension Surgical History Surgery Date Site/Laterality Comments SECTION 02/11/1994 - 02/10/1995 section SECTION TUBAL LIGATION COLONOSCOPY Medical History Medical History Date Comments Hx Other Medical 1991 Hx Other Medical 1971 double hernia( at ) Hx Other Medical Headache, migra ine Hypertension Hypertension UC (ulcerative colitis) Sinus tachycardia sinus tachycar harrison syndrom Goiter Depression Anxiety History of transfusion infancy Family History Medical History Relation Name Comments Hyperlipidemia Father 2 Hyperlipidemi a; Hypertension Father 2 Hypertension; Other Father 2 Alive and well; Seizures Father 2 Seizure disorde r; Depression Mother 2 Depression; Hyperlipidemia Mother 2 Hyperlipidemi a; Hypertension Mother 2 Hypertension; Other Mother 2 Alive and well; Relation Name Status Comments Father 1 Alive Father 2 Mother 1 Alive Mother 2 Social History Tobacco Use Types Packs/Day Years Used Date Smoking Tobacco: Light Smoker Smokeless Tobacco: Never Comments:smokes occasionally Alcohol Use Standard Drinks/Week Comments Yes 0 (1 standard drink = 0.6 oz pur e alcohol) occassional Comments Unknown Sex and Gender Information Value Date Recorded Sex Assigned at Not on file Legal Sex Female 10:34 AM ASSOCIATE PROFESSOR OF SURGERY Gender Identity Not on file Sexual Orientation Not on file Obstetrics History Last Filed Vital Signs Vital Sign Reading Time Taken Comments Blood Pressure 112/74 03/01/2017 11:58 AM ASSOCIATE PROFESSOR OF SURGERY Pulse 95 03/01/2017 11:58 AM ASSOCIATE PROFESSOR OF SURGERY Temperature 37.3 C (99.1 F) 03/01/2017 11:58 AM ASSOCIATE PROFESSOR OF SURGERY Respiratory Rate 16 03/01/2017 11:58 AM ASSOCIATE PROFESSOR OF SURGERY Oxygen Saturation 94% 03/01/2017 1:10 PM ASSOCIATE PROFESSOR OF SURGERY Inhaled Oxygen Concentration - - Weight 77.1 kg (170 lb) 03/22/2017 2:58 PM ASSOCIATE PROFESSOR OF SURGERY Height 167.6 cm (5' 6) 03/22/2017 2:58 PM ASSOCIATE PROFESSOR OF SURGERY Body Mass Index 27.44 03/22/2017 2:58 PM ASSOCIATE PROFESSOR OF SURGERY Plan of Treatment Not on file Insurance [facility] Advance Directives For more information, please contact: [phone] * Full Code (Latest Code Status on File) Date Activated Date Inactivated Comments 02/28/2017 6:12 PM 03/01/2017 4:52 PM Care Teams Academic Affairs Specialist Relationship Specialty Start Date End Date Bereket Carrillo PCP - General 02/28/17
== END 2024-12-07 11:50 | disposition home or self-care (01) ==
PROVIDERS: Emergency Provider Nurse Practitioner; PCP Physician Assistant
DX: U07.1 COVID-19 (principal); I10 Essential (primary) hypertension
CPT/HCPCS: 87426; 87804; 99213; G0463

== ENCOUNTER 2024-12-16 10:53 | Emergency (ER) | payer OTHER, SELFPAY ==
[2024-12-16 11:01] VITALS: BP 117/83; PULSE 81; RESP 16; TEMP 36.6; O2SAT 98
--- NOTE | 2024-12-16 11:18 | ED_ITS ---
HPI - URI/Sore Throat General Chief Complaint: Upper Respiratory Infection Stated Complaint: upper respiratory Time Seen by Provider: 12/16/24 11:18 Source: patient and RN notes reviewed Mode of arrival: ambulatory Limitations: no limitations History of Present Illness HPI Narrative: 54-year-old female presents with concern of for 11 day history of cough, sinus congestion, general malaise, fevers, occasional shortness of breath. She was diagnosed with COVID 9 days ago. She has been taking sinus medicine and Mucinex without relief. MD elicited complaint: cough and nasal congestion Related Data Home Medications ?Medication ?Instructions ?Recorded ?Confirmed ?Last Taken ?Type escitalopram oxalate 10 mg tablet 10 mg PO DAILY 05/3101/14/23 Unknown History propranolol 160 mg capsule,24 mg PO 12/07/24 Unknown History hr,extended release topiramate 25 mg tablet mg 12/07/24 Unknown History Allergies Allergy/AdvReac Type Severity Reaction Status Date / Time Penicillins Allergy Intermediate Hives Verified 12/16/24 11:04 erythromycin base Allergy Unknown Verified 12/16/24 11:04 Review of Systems Review of Systems: CONSTITUTIONAL: Reports malaise, fever. EYES: Denies visual changes, redness, or discharge. ENT: Reports rhinorrhea, congestion, CARDIOVASCULAR: Denies chest pain, palpitations, or edema. RESPIRATORY: Reports cough. Denies dyspnea. GASTROINTESTINAL: Denies abdominal pain, nausea, vomiting, diarrhea SKIN: Denies rash or itching. MUSCULOSKELETAL: Reports myalgia. NEUROLOGIC: Reports headache. All systems reviewed & are unremarkable except as noted in HPI and below PMFSH Past Medical History Medical History Hypertension Ulcerative colitis Comments At time of signature, agree with nursing past medical, surgical, social and family history. There is no relevant family history pertinent to the presenting complaint Exam Narrative: GENERAL: Nontoxic-appearing, well-nourished, and in no acute distress. HEAD: Normocephalic EYES: PERRLA, conjunctivae clear ENT: Nares clear, turbinates edematous and erythematous. Mucous membranes moist. TM pearly reynoso with dull light reflex bilaterally; no tragal tenderness. Oropharynx not erythematous without lesions. Tonsils not enlarged and without exudate, no drooling, no hoarseness, no trismus, uvula midline. NECK: Supple. No lymphadenopathy CHEST: Clear to auscultation, breath sounds equal. No wheezing, rhonchi, rales, or stridor. No respiratory distress, speaks in full sentences. HEART: Regular rate and rhythm. No murmur heard. SKIN: Warm, dry, no rash. NEURO: Alert and oriented x3. PSYCH: Normal mood and affect Course Course Emergency Course: Patient is aware of diagnosis, understands and agrees to treatment plan. Anticipatory guidance given. Patient agrees to follow-up as directed and is aware of reasons to seek care at the emergency department. Portions of this record may have been created with voice recognition software Level of Care: Express Care Visit Vital Signs Vital signs: Vital Signs Temperature 98 F 12/16/24 11:01 Pulse Rate 81 12/16/24 11:01 Respiratory Rate 16 12/16/24 11:01 Blood Pressure 117/83 12/16/24 11:01 Pulse Oximetry 98 12/16/24 11:01 Oxygen Delivery Room Air 12/16/24 11:01 Temperature 98 F 12/16/24 11:01 Pulse Rate 81 12/16/24 11:01 Respiratory Rate 16 12/16/24 11:01 Blood Pressure 117/83 12/16/24 11:01 Pulse Oximetry 98 12/16/24 11:01 Oxygen Delivery Room Air 12/16/24 11:01 Reviewed. MDM - URI/Sore Throat MDM Narrative Medical decision making narrative: Differential diagnosis considered: Painting virus, strep pharyngitis, allergic rhinitis, upper respiratory tract infection, sinusitis, rhinosinusitis, nasopharyngitis. viral pharyngitis, otitis media, otitis externa, pneumonia, bronchitis, viral cough syndrome, viral syndrome, and influenza. Exam findings show no acute concerns or changes; patient is non-toxic appearing and is in no distress. Patient is appropriate for outpatient treatment and follow-up. Lab Data Attestation: I reviewed the patient's lab results. Critical Care Time Critical Care Time Critical Care Time: No Discharge Plan Discharge Clinical Impression: Sinobronchitis Patient Disposition: Home Condition: Stable Instructions: Antibiotic Form, Sinusitis (ED) Additional Instructions: Take medication as prescribed Recommend antihistamine such as Benadryl at night time and Zyrtec or Frida during the day Also, recommend symptomatic treatment includes: rest, fluids, and increase humidity of the air at home. Recommend Acetaminophen as directed on the bottle to reduce fever, pain, headache. Avoid smoking/second-hand smoke. Please schedule a follow-up visit with your personal physician for further evaluation and treatment within 3-5days. If your symptoms persist, change or worsen significantly before you can contact your personal physician then please, without delay, go to the emergency department for further evaluation. Patient Language: Greenlandic Prescriptions: New doxycycline monohydrate 100 mg tablet 100 mg PO BID 7 Days Qty: 14 0RF methylprednisolone [Medrol (Rishabh)] 4 mg tablets,dose pack See Rx Instructions .ROUTE .COMPLEX Qty: 21 0RF Rx Instructions: orally per package directions No Action escitalopram oxalate 10 mg tablet 10 mg PO DAILY propranolol 160 mg capsule,extended release 24 hr PO topiramate 25 mg tablet Follow-up/Referrals: Christopher,HANS Dudley [Primary Care Provider, Unknown] Stand Alone Forms: Work/School Release IP Time of Disposition: 11:24
--- OUTSIDE RECORDS SUMMARY | 2024-12-17 10:33 | XMS_ITS | Clinical Summary ---
Author Organization [facility] [place] [place] [address] [facility] [address] Address [address] [place] [address] Care Team Providers Care Math Instructor Name Role Phone Bereket Carrillo Primary Care [...] 01/09/2017 Assessment & Plan (03/26/2017 6:37 PM MAINTENANCE APPRENTICE): Patient has done well postoperatively. I will check a TSH level. Patient will follow back up in 2 weeks. Assessment & Plan (01/09/2017 6:36 PM MAINTENANCE APPRENTICE): Patient demonstrates a large left substernal goiter [...] on file Legal Sex Female 10:34 AM MAINTENANCE APPRENTICE Gender Identity Not on file Sexual Orientation Not on file Last Filed Vital Signs Vital Sign Reading Time Taken Comments Blood Pressure 112/74 03/01/2017 11:58 AM MAINTENANCE APPRENTICE Pulse 95 03/01/2017 11:58 AM MAINTENANCE APPRENTICE Temperature 37.3 C (99.1 F) 03/01/2017 11:58 AM MAINTENANCE APPRENTICE Respiratory Rate 16 03/01/2017 11:58 AM MAINTENANCE APPRENTICE Oxygen Saturation 94% 03/01/2017 1:10 PM MAINTENANCE APPRENTICE Inhaled Oxygen Concentration - - Weight 77.1 kg (170 lb) 03/22/2017 2:58 PM MAINTENANCE APPRENTICE Height 167.6 cm (5' 6) 03/22/2017 2:58 PM MAINTENANCE APPRENTICE Body Mass Index 27.44 03/22/2017 2:58 PM MAINTENANCE APPRENTICE Plan of Treatment Not on file Insurance [facility] Advance Directives For more information, please contact: [phone] * Full Code (Latest Code Status on File) Date Activated Date Inactivated Comments 02/28/2017 6:12 PM 03/01/2017 4:52 PM Care Teams Math Instructor Relationship Specialty Start Date End Date Bereket Carrillo PCP - General 02/28/17
--- OUTSIDE RECORDS SUMMARY | 2024-12-17 10:33 | XMS_ITS | Encounter Summary ---
Author Organization [facility] Address [address] [place] [address] Phone Care Team Providers Care Collection Systems Technician Name Role Phone Pilo Mills DO Unavailable [phone] Donita White Primary Care Provider + Joy Costa FINISHING AREA SUPERVISOR, LEAD CARPENTER Unavailable + [phone] Sarah Cline FINISHING AREA SUPERVISOR, TAX SPECIALIST Unavailable Reason for Visit * Reason Comments Medication Refill Encounter Details Date Type Department Care Team (Late st Contact Info) Description 11/18/2020 Refill [facility] - [facility] [address] [place] [address] Donita White PAC [address] [place] [address] Medication Refill Social History Tobacco Use Types [...] file Not on file 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 Not on file [...] Dept 07/19/20 Office Visit Donita White PAC [facility] 06/21/20 Telemedicine Donita White PAC [facility] 05/20/20 Telemedicine Donita White [facility] Showing recent visits within past 182 [...] documented as of this encounter Care Teams Collection Systems Technician Relationship Specialty Start Date End Date Donita White PAC [address] [place] [address] PCP - General Physician High School Academic Coach 04/29/17 Pilo Mills DO Gastroenterology 11/01/15 Joy Costa APRN, LEAD CARPENTER [address] [place] [address] Nurse Practitioner Advanced Practice Nurse 12/02/23 Sarah Cline APRN, TAX SPECIALIST [address] [place] [address] Nurse Practitioner Cardiology 02/03/24 documented as of this encounter
--- OUTSIDE RECORDS SUMMARY | 2024-12-17 10:33 | XMS_ITS | Clinical Summary ---
Author Organization [facility] Address [address] [place] [address] Phone Care Team Providers Care Engineering Administrator Name Role Phone Pilo Mills DO Unavailable [phone] Donita White Primary Care Provider + Joy Costa CARD BOXER, CONTENT ARCHITECT Unavailable + [phone] Sarah Cline CARD BOXER, SAMPLER AND TEST PREPARER Unavailable Allergies Active Allergy Reactions Criticality Noted [...] Description 09/17/2024 Refill [facility] [address] [place] [address] Donita White PAC Medication Refill from Last [...] often do you attend chur ch or synagogue services? Patient declined 08/19/2023 Do you belong to any clubs o r organizations such as mormon groups, unions, fraternal or athletic groups, or [...] Score - Questions 1-9 10 05/0 06/2024 [facility] of Occupat ional Health - Occupational Stress [...] any time in the past 12 m [facility], were you homeless or living in a prison (including now)? 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 Electronically signed by: Cat martinez/gabyrad:08/06/2017 17:12:37 Occupational Health Physician: Rachelle Capellan (Emil), [facility] letter sent: Normal Exam Reading location: BI-RADS: 1 Negative Procedure Note Cat Stephen MD - 08/07/2017 - [facility] SCREENING BILATERAL DIGITAL W CAD [...] next screening exam. Electronically signed by: Cat martinez/dasha:08/06/2017 17:12:37 Occupational Health Physician: Rachelle Capellan (Emil), [facility] letter sent: Normal Exam Reading location: BI-RADS: 1 Negative us Donita Driscollrandychay PAC IMG MAMMO ORDERABLES Fin al Result * Hepatitis Panel Acute (AHP) (06/29/2016 8:25 AM CDT) HEPATITIS A IGM ANTIBODY NON DETECTED NON DETECTED 06/29/2016 11:18 PM CDT [facility] Comment: IGM Antibodies to HAV not detected. Does not exclude early acute or recovered HAV infection. HEP B CORE AB (IGM) NON DETECTED NON DETECTED 06/29/2016 11:18 PM CDT [facility] Comment: IGM anti-HBC not detected. Does not exclude the possibility of exposure to or infection with HBV. HEPATITIS B SURFACE ANTIGEN NON DETECTED NON DETECTED 06/29/2016 11:18 PM CDT [facility] Comment: A nonreactive test result does not [...] 0.10 <1 S/CO 06/29/2016 11:18 PM CDT [facility] Comment: Signal/Cutoff ratio < 0.79 is Nondetected Signal/Cutoff ratio 0.80-0.99 is Grayzone Signal/Cutoff ratio > 0.99 is Detected Supplemental assays are recommended if signal/cutoff ratio is >/=1.00. Signal/cutoff ratio result >/= 5.00 is 97% predictive of positivity for recombinant immunoblot assay (RIBA) and will be reported to the [place] Department of Public Health as required. Blood specimen (specimen) Butterfly Puncture / Unknown 06/29/2016 8:25 AM CDT 06/29/2016 8:31 AM CDT us Pilo Mills DO HEMATOLOGY ORDERABLES Final Res ult [facility] [address] [place] [address], * COLONOSCOPY (06/29/2016) Result [facility] Pilo Mills DO PROCEDURE/MINOR SURGICAL ORDERA BLES Final Result from Last 3 Months or Most Recently Relevant to Health Maintenance Insurance MEDICAID [place] Care Teams Engineering Administrator Relationship Specialty Start Date End Date Donita White [address] [place] [address] PCP - General Physician Cap Parts Cutter 04/29/17 Pilo Mills DO Gastroenterology 11/01/15 Joy Costa APRN, CONTENT ARCHITECT [address] [place] [address] Nurse Practitioner Advanced Practice Nurse 12/02/23 Sarah Cline APRN, SAMPLER AND TEST PREPARER [address] [place] [address] Nurse Practitioner Cardiology 02/03/24
== END 2024-12-16 11:36 | disposition home or self-care (01) ==
PROVIDERS: Emergency Provider Nurse Practitioner; PCP Physician Assistant
DX: J32.9 Chronic sinusitis, unspecified (principal); J40 Bronchitis, not specified as acute or chronic; I10 Essential (primary) hypertension
CPT/HCPCS: 99213; G0463